=== PATIENT | male | born 1965 | race Caucasian/White ===

== ENCOUNTER → 2017-01-08 | Outpatient (CLI) | payer MEDICARE ==
[~2017-01-08] MED LIST: BENZTROPINE ME0.5 MG PO; BIOTENE)(DRY MO16 OZ PO; CLARITIN10 MG PO; COLACE100 MG PO; DULCOLAX5 MG PO; FLONASE 50 MCG/16 GM NOSE; FLOVENT DISKUS50 MCG NOSE; LIPITOR10 MG PO; MINERIN LOTION473 ML TOP; MOTRIN400 MG PO; PAXIL30 MG PO; RISPERDAL2 MG PO; TYLENOL EXTRA500 MG PO; ZYLOPRIM300 MG PO; [UNRECOGNIZED DRUG - OTHER] TOP
== END | disposition disaster alternative care site (69) ==
LOC: GRAD 13:11
DX: N20.0 Calculus of kidney (principal)